=== PATIENT | male | born 1955 | race Caucasian/White ===

== ENCOUNTER 2018-10-21 08:35 | Day surgery (SDC) | payer MEDICARE ==
[~2018-10-21] VITALS: Ht 182 cm; Wt 93.2 kg
[~2018-10-21 08:35] MED LIST: AMLO5 PO; AREDS EYE VITAMINS PO; ATOR10 PO; HYDCHL25 PO; LOSA25 PO
--- NOTE | 2018-10-21 09:23 | NUR ---
Ambulatory in Day Surgery History, Chart, Medications and Allergies reviewed before start of procedure.Patient confirms NPO status and agrees with scheduled surgery. Patient states colon prep results clear.Lungs clear T/O to Auscultation.
--- NOTE | 2018-10-21 09:58 | NUR ---
10/21/18 0958 Taryn Glynn History, Chart, Medications and Allergies reviewed before start of procedure. Patient confirms NPO status and agrees with scheduled surgery. PATIENT DETERMINED TO BE ASA APPROPRIATE FOR PROPOFOL SEDATION PRIOR TO START OF PROCEDURE BY DR. ZABALA. 3-LEAD EKG REVIEWED WITH PHYSICIAN PRIOR TO START OF PROCEDURE. MONITOR INTACT WITH CONTINUOUS PULSE OXIMETRY AND INTERMITTENT BP.
--- NOTE | 2018-10-21 10:29 | NUR ---
PLAN FOR EKG AFTER COLONOSCOPY DUE TO CHANGE IN RYTHYM DURING PROCEDURE.
--- NOTE | 2018-10-21 11:20 | NUR ---
Discharge instructions reviewed with patient. Patient verbalizes understanding. Copy given to patient to take home. Patient up to Ambulate independently. Gait steady. Patient States Post-Procedure ride home has been arranged. Discharged via wheelchair to private car for ride home. ALL BELONGIGNS SENT WITH PATIENT. PT DENIED CP OR PRESSURE THRUOUGHT RECOVERY. DENIES SOB OR FEELING LIKE HEART IS FLUTTERING.
== END 2018-10-21 22:59 | disposition home or self-care (01) ==
LOC: ORSCMMR 08:35 → ORD 09:30 → ORSCMMR 09:30
PROVIDERS: Internal Medicine Gastroenterology
PROC: 0DJD8ZZ Inspection of Lower Intestinal Tract, Via Natural or Artificial Opening Endoscopic (ICD-10-PCS; principal; 2018-10-21 09:30)
DX: Z12.11 Encounter for screening for malignant neoplasm of colon (principal); K57.30 Diverticulosis of large intestine without perforation or abscess without bleeding; I10 Essential (primary) hypertension; E78.00 Pure hypercholesterolemia, unspecified; Z79.899 Other long term (current) drug therapy
CPT/HCPCS: 93005; 93010; J2704; J7120